=== PATIENT | male | born 1965 | race Caucasian/White ===

== ENCOUNTER → 2020-06-09 | Outpatient (CLI) | payer OTHER ==
[2020-06-09 13:02] LABS: HCT 46.5 % (39.0-53.0); HGB 15.9 gm/dL (13.0-17.5); MCH 29.5 pg (25.0-35.0); MCHC 34.2 g/dL (31.0-37.0); MCV 86.1 fL (80.0-100.0); Mean Platelet Volume 7.8; Platelet Count 324 k/uL (150-450)
[2020-06-09 22:52] LABS: African American GFR (CKD) 87.1 (60.0-200.0); Anion Gap 10.6 mmol/L (4.00-12.00); BUN/Creat Ratio 20.91 Ratio (12.00-20.00); Calcium 10.4 mg/dL (8.7-10.3); Carbon Dioxide 28.4 mmol/L (21.6-31.8); Non-African American GFR(CKD) 75.2 (60.0-200.0); Potassium 4.4 mmol/L (3.5-5.5)
== END | disposition home or self-care (01) ==
LOC: LABWHC1 11:52
DX: G56.03 Carpal tunnel syndrome, bilateral upper limbs (principal)
CPT/HCPCS: 36415; 80048; 85027; 93005

== ENCOUNTER 2023-06-29 11:40 | Day surgery (SDC) | payer MEDICARE, OTHER ==
[~2023-06-29 11:40] MED LIST: LACTATED RINGERS 1,000 ML IV SCH
[2023-06-29] MEDS: LACTATED RINGERS 1,000 ML IV ONE (13:05)
[2023-06-29 13:36] VITALS: TEMP 97.5
[2023-06-29] MEDS ORDERED: PROPOFOL 10 MG/ML 20 ML VIAL IV ONE (14:10)
[2023-06-29] MEDS ORDERED: LIDOCAINE 1% INJ 10MG/ML (20 ML MDV) ONE (14:10)
--- NOTE | 2023-06-29 14:33 | P.PCN ---
Date of Procedure: 06/29/23 Procedure(s) Performed: BRIEF HISTORY: Patient is a 57-year-old white male-scheduled for an upper endoscopy as a part of evaluation of progressive dysphagia to solids and liquids for the last 2 months duration. He lost 15 pounds in the last 2 months. Has occasional heartburn. Has been sore done in April 2023 that revealed a distal esophageal ulcer and a small hiatal hernia. He scheduled for an upper endoscopy to evaluate further PROCEDURE PERFORMED: Esophagogastroduodenoscopy with biopsy. PREOPERATIVE DIAGNOSIS: Progressive dysphagia to solids and liquids for the last 4 months associated with loss of 20 pounds. IV sedation per anesthesia. PROCEDURE: After informed consent was obtained, the patient was brought into the endoscopy unit. IV sedation was administered by Anesthesia under continuous monitoring. Initially the Olympus GIF-140 video endoscope was inserted into the mouth. Esophagus intubated without any difficulty. It was gradually advanced into the stomach and duodenum and carefully examined. The bulb and the second part of the duodenum appeared normal. The scope at this time was withdrawn to the stomach, adequately insufflated with air, and upon careful examination, mucosa of the antrum, body, cardia and the fundus appeared normal. The scope was then withdrawn into the esophagus. Small hiatal hernia noted. The GE junction was located at 41 cm from the incisors. There was a deep ulcer noted in the distal esophagus extended from 37-41 cm from the incisors and the distal end of the ulceration had friable mass suspicious for neoplasm and multiple biopsies were done from this area. Rest of the esophagus appeared normal and the patient tolerated the procedure well. IMPRESSION: 1. Deep distal esophageal ulcer extending from 37-41 cm from the incisors and with very friable raised margins in the distal part of the ulcer suspicious for neoplasm status post multiple biopsies. 2. Small hiatal hernia 3. Mild narrowing of the distal esophagus. RECOMMENDATIONS: The findings of this examination were discussed with the patient as well as his family. He was advised to follow with the biopsy results and he'll be seen in office next week..
[2023-06-29 14:37] VITALS: PULSE 67; RESP 16
[2023-06-29 15:07] VITALS: BP 137/89
== END 2023-06-29 15:04 | disposition home or self-care (01) ==
LOC: ORWHC2ENDO 11:40
PROVIDERS: ATTEND Internal Medicine Gastroenterology
DX: K44.9 Diaphragmatic hernia without obstruction or gangrene (principal); I10 Essential (primary) hypertension; E03.9 Hypothyroidism, unspecified; K22.10 Ulcer of esophagus without bleeding; F17.210 Nicotine dependence, cigarettes, uncomplicated; K21.9 Gastro-esophageal reflux disease without esophagitis; Z79.899 Other long term (current) drug therapy; Z79.890 Hormone replacement therapy
CPT/HCPCS: 88305; 88342; 88341; 43239; J2001; J2704

== ENCOUNTER → 2023-07-13 | Outpatient (CLI) | payer MEDICARE ==
--- NOTE | 2023-07-17 11:12 | PE ---
EXAMINATION TYPE: PET CT fusion skull to thigh DATE OF EXAM: 07/13/2023 COMPARISON: No pertinent CT at this location Prior PET/CT: No prior CT at this location HISTORY: Esophageal cancer TECHNIQUE: Following the intravenous administration of 9.45 mCi of F-18 FDG, whole body images are p erformed from the skull base to the midthigh. Images are reviewed on the computer in the coronal, ax ial, and sagittal planes. Reconstructed rotating images are created on independent workstation and r eviewed on the computer. A localization and attenuation correction CT is performed in conjunction w ith the PET scan. DLP: 534.45 mGycm SCAN: Initial Blood glucose: 98 mg/dL Average Mediastinum SUV: 1.88 Average Liver SUV: 2.18 FINDINGS: NECK: No suspicious uptake THORAX: The distal esophagus or circumferential thickening and abnormal radiotracer uptake. SUV is 14 .23. Findings are compatible with the patient's known esophageal cancer. This extends to the diaphrag m. Uptake within the stomach is not identified. More proximal esophagus appears without abnormal upta ke. Within the pretracheal space at the level of the rhonda there is a 1.4 cm lymph node. This has interm ediate to slightly elevated uptake at SUV 3.29. Image 92 right paratracheal lymph node image 84 has S UV 3.47. Right paratracheal lymph node image 86 has intermediate uptake 2.76. A left perihilar lymph node image 93 has an SUV of 4.12. ABDOMEN: No suspicious uptake PELVIS: No suspicious uptake OSSEOUS STRUCTURES: No suspicious uptake LOCALIZATION CT: There is a prominent pretracheal lymph node with additional smaller mediastinal mirza opathy. This enlarged lymph node in the pretracheal space near the level of rhonda measures 1.4 cm. Coronary artery calcification is present. COMPARISON: None IMPRESSION: 1. Thickening of distal esophagus with increased radiotracer accumulation in the distal esophagus to the diaphragm compatible with the patient's known esophageal cancer. 2. There is an enlarged lymph node near the rhonda in the pretracheal space has mild elevated uptake of 3.29. 3. There is some additional mediastinal and hilar lymph nodes with mild uptake which are nonspecific. Early metastasis cannot be excluded.
== END | disposition home or self-care (01) ==
LOC: RADPETMAIN 10:57
PROVIDERS: ATTEND Internal Medicine Hematology & Oncology
DX: C15.5 Malignant neoplasm of lower third of esophagus (principal); I10 Essential (primary) hypertension; E03.9 Hypothyroidism, unspecified
CPT/HCPCS: 78815; A9552

== ENCOUNTER → 2023-10-23 | Outpatient (CLI) | payer MEDICARE ==
--- NOTE | 2023-10-24 19:55 | CT ---
EXAMINATION TYPE: CT chest wo con DATE OF EXAM: 10/23/2023 COMPARISON: None HISTORY: esophageal ca, obs for mets CT DLP: 349.3 mGycm. Automated Exposure Control for Dose Reduction was Utilized. TECHNIQUE: CT scan of the thorax is performed without IV contrast. FINDINGS: The right upper lobe there are 4 ill-defined parenchymal densities largest which is approximately 6.6 mm. There is no airspace consolidation or abnormal interstitial density. There is no pleural effusion, pleural thickening or pneumothorax. The great vessels the chest are normal. There is a 12 to 13 mm short axis lymph node in the subcarina l region. There is a 10 mm short axis precarinal lymph node. Limited scanning through the upper abdomen reveals no gross abnormality. There is marked thickening o f the distal esophagus. No focal osseous lesions are seen. IMPRESSION: 1. Thickening of the distal esophageal wall. 2. 4 ill-defined parenchymal densities in the right upper lobe which are nonspecific and could repres ent metastatic lesions or inflammatory lesions. Short-term follow-up is recommended. 3. Mild mediastinal lymphadenopathy
== END | disposition home or self-care (01) ==
LOC: RADCTMAIN 12:49
PROVIDERS: ATTEND Thoracic Surgery (Cardiothoracic Vascular Surgery)
DX: C15.9 Malignant neoplasm of esophagus, unspecified (principal); J98.4 Other disorders of lung; R59.0 Localized enlarged lymph nodes; K22.9 Disease of esophagus, unspecified
CPT/HCPCS: 71250; 70553; A9585

== ENCOUNTER → 2023-10-30 | Outpatient (CLI) | payer MEDICARE ==
--- NOTE | 2023-10-30 13:15 | CA ---
Exercise Stress Test Report Name: Jean Carlos Anthony Exam Date: 10/30/2023 09:11 Exam Location: [facility] Ht (in): 66 Wt (lb): 187 BSA: 1.94 Ordering Phys: Meño Ambrose MD Referring Phys: Meño Ambrose MD Technologist: Jorden Reyes Age: 58 Gender: M : 1965 Procedure CPT: Indications: Esophageal CA ICD-10 Codes: Patient History: Medications: LOPRESSOR, SYNTHROID, NAPROXEN Meds past 24 hrs: Pretest Chest Pain: STRESS TEST Lukas Protocol Exercise Duration (min:sec): 10:[address] Depressions (mm): Angina Score: Rashid Score: Resting HR (bpm): 76 Peak HR (bpm): 142 Resting BP (mmHg): 153 / 77 Peak BP (mmHg): 248 / 95 MPHR: 161 Target HR: 137 % MPHR: 88 METS: 11.7 Total Dose: Peak Dose: Atropine: Double Product: 93262 BP Response: Stress Termination: TARGET HR REACHED/MAX EXERTION Stress Symptoms: DIFFICULTY IN BREATHING Stress Summary: ECG ANALYSIS Resting ECG: Stress ECG: CONCLUSIONS Excellent exercise capacity No ECG evidence for ischemia Normal heart rate response Hypertensive response to exercise peak blood pressure 248/[address] Jason Puga MD (Electronically Signed) Final Date: 30 October 2023 13:14
== END ==
LOC: CPPFTMAIN 07:18
PROVIDERS: ATTEND Thoracic Surgery (Cardiothoracic Vascular Surgery)
DX: Z01.812 Encounter for preprocedural laboratory examination (principal); C15.9 Malignant neoplasm of esophagus, unspecified; I10 Essential (primary) hypertension; Z88.5 Allergy status to narcotic agent
CPT/HCPCS: 93017; 94060; 94618; 94726; 94729

== ENCOUNTER → 2023-12-13 | Outpatient (CLI) | payer MEDICARE ==
--- NOTE | 2023-12-13 18:06 | PE ---
EXAMINATION TYPE: PET CT fusion skull to thigh DATE OF EXAM: 12/13/2023 CLINICAL INDICATION:Male, 58 years old with history of C15.5 ESOPHAGUS CANCER; TECHNIQUE: Following the intravenous administration of 11.21 mCi of F-18 FDG, whole body images are performed from the skull base to the midthigh. Images are reviewed on the computer in the coronal, axial, and sagittal planes. Reconstructed rotating images are created on independent workstation and reviewed on the computer. A non-contrast CT is performed in conjunction with the PET scan. Glucose level 92 mg/dL CT DLP: 543.40 mGycm, Automated exposure control for dose reduction was used. COMPARISON: CT 10/23/2023, PET/CT 07/13/2023, MRI: 10/23/2023 FINDINGS: Mediastinal SUV mean is 3.1. Hepatic parenchyma SUV mean is 3.3. SKULL BASE AND NECK: Symmetric physiologic uptake identified within the base and anterior tongue. No suspicious radiotracer activity. CHEST, MEDIASTINUM, AND HILAR REGION: Prominent mediastinal and bilateral hilar lymph nodes with a pretracheal 9 mm short axis lymph node d emonstrated with a maximum SUV of 3.5. Left pulmonary hilar lymph nodes demonstrate maximum SUV of 3.7. Right pulmonary hilar lymph nodes demonstrate maximum SUV of 4.3. Subcarinal lymph node demonstrates a maximum SUV of 4.3. Bibasilar dependent system atelectasis. Previously seen posterior right upper lobe perivascular nodul ar densities are slightly less conspicuous on today's exam. No significant FDG activity within maximu m SUV of 1.0 identified in this region. ABDOMEN AND PELVIS: Circumferential wall thickening of the distal esophagus with maximum SUV uptake o f 7.1. Previous maximum SUV of 14.2. No significant focal uptake identified within the proximal and m id portions of the esophagus. No significant focal uptake identified within the stomach. MUSCULOSKELETAL STRUCTURES: No suspicious radiotracer activity. OTHER CT: Bilateral carotid bulb calcifications. Mild atherosclerotic calcification of the aorta and its branches. Mild to moderate coronary arterial calcifications. Small fat filled left periumbilical hernia. Distal colonic diverticulosis. Prostate calcifications. Degenerative changes of the visualize d spine. Physiologic uptake identified within the paraspinal musculature. IMPRESSION: 1. There is redemonstration of thickening of the distal esophagus with decreased FDG activity from p rior PET/CT suggesting positive response to therapy. 2. Less conspicuous appearance of perivascular nodular densities within the right upper lobe likely representing infectious/inflammatory bronchiolitis. This is beneath the sensitivity for PET/CT. No si gnificant FDG activity in this region above background. Consider follow-up CT chest in 3-6 months. 3. Prominent mediastinal and bilateral hilar lymph nodes with FDG activity just above background and favored to represent an infectious/inflammatory etiology. Metastatic lymph nodes are not entirely ex cluded.
== END | disposition home or self-care (01) ==
LOC: RADPETMAIN 13:13
PROVIDERS: ATTEND Internal Medicine Hematology & Oncology
DX: C15.5 Malignant neoplasm of lower third of esophagus (principal); I10 Essential (primary) hypertension; E03.9 Hypothyroidism, unspecified; Z71.3 Dietary counseling and surveillance; J98.4 Other disorders of lung
CPT/HCPCS: 78815; A9552

== ENCOUNTER 2024-01-06 17:38 | Emergency (ER) | payer MEDICARE ==
[2024-01-06] MEDS ORDERED: ONDANSETRON 4 MG/2 ML VIAL ONE (20:08)
[2024-01-06] MEDS ORDERED: HYDROmorphone 0.5 MG/0.5 ML SYRINGE ONE ×2 (20:08→23:53)
[2024-01-06] MEDS ORDERED: SODIUM CHLORIDE 0.9% 1,000 ML BAG ONE (20:15)
[2024-01-06] MEDS ORDERED: SODIUM CHLORIDE 0.9% 100 ML BAG IV ONE (20:15)
[2024-01-07] MEDS ORDERED: PIPERACILLIN-TAZOBACTAM 3.375 GM VIAL ONE (01:15)
== END 2024-01-07 02:14 ==
LOC: EC 17:38
DX: L76.22 Postprocedural hemorrhage of skin and subcutaneous tissue following other procedure
CPT/HCPCS: 74177; 87040; 96365; 96375; 96376; 99285